=== PATIENT | male | born 1975 | race Caucasian/White ===

== ENCOUNTER 2016-12-16 18:03 | Emergency (ER) | payer BC, OTHER ==
[2016-12-16] MEDS ORDERED: Ketorolac 60 MG/2 ML SDV IM ONE (19:04)
--- NOTE | 2016-12-16 19:08 | EDM.PDOC ---
ED HPI GENERAL MEDICAL PROBLEM - General Chief Complaint: Upper Extremity Injury/Pain Stated Complaint: PT HURT LT HAND Time Seen by Provider: 12/16/16 18:20 Source of Information: Reports: Patient History Limitations: Reports: No Limitations - History of Present Illness INITIAL COMMENTS - FREE TEXT/NARRATIVE: History of present illness: 41-year-old male comes in complaining of left hand pain. Patient has history of recent trauma at his work with his hand being trapped between 2 pieces of machinery with subsequent pain and swelling. Review of systems: As per history of present illness and below otherwise all systems reviewed and negative. Past medical history: As per history of present illness and as reviewed below otherwise noncontributory. Surgical history: As per history of present illness and as reviewed below otherwise noncontributory. Social history: No reported history of drug or alcohol abuse. Family history: As per history of present illness and as reviewed below otherwise noncontributory. Physical exam: HEENT: Atraumatic, normocephalic, pupils reactive, negative for conjunctival pallor or scleral icterus, mucous membranes moist, throat clear, neck supple, nontender, trachea midline. Lungs: Clear to auscultation, breath sounds equal bilaterally, chest nontender. Heart: S1S2, regular, negative for clicks, rubs, or JVD. Abdomen: Soft, nondistended, nontender. Negative for masses or hepatosplenomegaly. Negative for costovertebral tenderness. Pelvis: Stable nontender. Genitourinary: Deferred. Rectal: Deferred. Extremities: Left hand and wrist with significant amount of edema scant ecchymosis and difficulty moving fingers, patient has peripheral pulses with good color patient indicates that its more painful to move hand at points of maximum swelling, negative for cords or calf pain. Neurovascular unremarkable. Neuro: Awake, alert, oriented. Cranial nerves II through XII unremarkable. Cerebellum unremarkable. Motor and sensory unremarkable throughout. Exam nonfocal. Diagnostics: [X-ray of left hand] Therapeutics: [Toradol 60 mg] Impression: [Crush injury] Plan: [Follow-up with or so, pain medicine] Definitive disposition and diagnosis as appropriate pending reevaluation and review of above. Left Hand Pain Score (Numeric/FACES): 10 - Related Data Allergies Allergy/AdvReac Type Severity Reaction Status Date / Time No Known Allergies Allergy Verified 12/16/16 18:13 Home Meds: Home Meds . [No Known Home Meds] 12/16/16 [History] Past Medical History - Past Health History Medical/Surgical History: Denies Medical/Surgical History - Infectious Disease History Infectious Disease History: Reports: Mumps Social & Family History - Family History Family Medical History: Noncontributory - Tobacco Use Smoking Status *Q: Former Smoker Used Tobacco, but Quit: Yes Month Tobacco Last Used: 2 weeks ago - Caffeine Use Caffeine Use: Reports: Coffee, Energy Drinks Caffeine Use Comment: 1 drink each/day - Recreational Drug Use Recreational Drug Use: No Review of Systems - Review of Systems Review Of Systems: See Below (See history of present illness) ED EXAM, GENERAL - Physical Exam Exam: See Below (History of present illness) Course - Vital Signs Last Recorded V/S: Last Vital Signs Temp 36.7 C 12/16/16 18:10 Pulse 96 12/16/16 18:10 Resp 19 12/16/16 18:10 BP 130/80 12/16/16 18:10 Pulse Ox 96 12/16/16 18:10 - Orders/Labs/Meds Orders: Active Orders 24 hr Category Date Time Status Hand 2V Lt [CR] Stat Exams 12/16/16 18:16 Taken Meds: Medications Discontinued Medications Generic Name Dose Route Start Last Admin Trade Name Rosario PRMicky Reason Stop Dose Admin Ketorolac Tromethamine 60 mg 12/16/16 19:04 12/16/16 19:12 Toradol IM 12/16/16 19:05 60 mg ONETIME ONE Administration Departure - Departure Time of Disposition: 19:27 Disposition: Home, Self-Care 01 Condition: Good Clinical Impression: Crushing injury of hand, left - Discharge Information Instructions: Crush Injury, Fingers or Toes, [id number], How to Use a Sling, [id number] Forms: ED Department Discharge Additional Instructions: The following information is given to patients seen in the emergency department who are being discharged to home. This information is to outline your options for follow-up care. We provide all patients seen in our emergency department with a follow-up referral. The need for follow-up, as well as the timing and circumstances, are variable depending upon the specifics of your emergency department visit. If you don't have a primary care physician on staff, we will provide you with a referral. We always advise you to contact your personal physician following an emergency department visit to inform them of the circumstance of the visit and for follow-up with them and/or the need for any referrals to a consulting specialist. The emergency department will also refer you to a specialist when appropriate. This referral assures that you have the opportunity for follow-up care with a specialist. All of these measure are taken in an effort to provide you with optimal care, which includes your follow-up. Under all circumstances we always encourage you to contact your private physician who remains a resource for coordinating your care. When calling for follow-up care, please make the office aware that this follow-up is from your recent emergency room visit. If for any reason you are refused follow-up, please contact the [facility] Emergency Department at and asked to speak to the emergency department charge nurse. Follow-up with ortho as directed Take pain medication as directed [facility] [address], [address] [address] - My Orders Last 24 Hours: My Active Orders 12/16/16 18:16 Hand 2V Lt [CR] Stat - Assessment/Plan Last 24 Hours: My Active Orders 12/16/16 18:16 Hand 2V Lt [CR] Stat
[2016-12-16 19:39] VITALS: BP 127/73
--- NOTE | 2016-12-18 15:03 | CR ---
EXAM DATE: 12/16/16 PATIENT'S AGE: 41 Patient: MICKIE THOMPSON Facility: [place], [place] Site . Site : [id number] Study: XRay Extremity Left [id number]/1/2017 6:31:19 PM Ordering Physician: Doctor Bueno Final Report: INDICATION: Trauma. TECHNIQUE: Two views of the left hand. COMPARISON: None. IMPRESSION: No fracture. No traumatic subluxation or dislocation. No radiopaque foreign body. Dictated by Scott Owens MD @ 12/16/2016 7:17:19 PM Dictated by: Scott Owens MD @ 12/16/2016 19:17:25 (Electronic Signature) MReport Signed by Proxy. FRANCISCO
== END 2016-12-16 19:42 | disposition home or self-care (01) ==
LOC: MW.ED 18:03
DX: S67.22XA Crushing injury of left hand, initial encounter (principal); Z87.891 Personal history of nicotine dependence; W23.1XXA Caught, crushed, jammed, or pinched between stationary objects, initial encounter
CPT/HCPCS: 73120; 96372; 99283; A4566; J1885